=== PATIENT | male | born 1980 | race Caucasian/White ===

== ENCOUNTER → 2024-04-07 10:25 | Outpatient (REF) | payer OTHER, SELFPAY | LOC: RCS 10:25 | PROVIDERS: ATTENDING PHYSICIAN Physician Assistant | DX: R07.89 Other chest pain (principal); R06.09 Other forms of dyspnea | CPT/HCPCS: 93017 ==

== ENCOUNTER → 2024-12-12 16:09 | Outpatient (REF) | payer BC, SELFPAY | LOC: RAD 16:09 | PROVIDERS: ATTENDING PHYSICIAN Physician Assistant | DX: M25.561 Pain in right knee (principal) | CPT/HCPCS: 73564 ==

== ENCOUNTER → 2024-12-15 10:22 | Outpatient (REF) | payer BC, SELFPAY | LOC: RAD 10:22 | PROVIDERS: ATTENDING PHYSICIAN Physician Assistant | DX: Z77.018 Contact with and (suspected) exposure to other hazardous metals (principal) | CPT/HCPCS: 70030 ==

== ENCOUNTER 2025-01-12 06:24 | Day surgery (SDC) | payer BC, SELFPAY | END 2025-01-12 12:46 | disposition home or self-care (01) | LOC: GI 06:24 | PROVIDERS: ATTENDING PHYSICIAN Internal Medicine Gastroenterology | DX: Z12.11 Encounter for screening for malignant neoplasm of colon (principal); K64.8 Other hemorrhoids | CPT/HCPCS: G0121 ==